=== PATIENT | female | born 1955 | race Caucasian/White ===

== ENCOUNTER → 2018-06-10 | Outpatient (CLI) | payer BC, MEDICARE ==
[~2018-06-10] MED LIST: AMLO10TA6 PO; GLYB2.5T2 PO; LOSA1TAB19 PO; METF1000 PO; METO50TA82 PO
[2018-06-10 14:56] LABS: ALANINE AMINOTRANSFERASE 29 U/L (12-78); ANION GAP 9 mmol/L (5-15); CALCIUM 9.6 mg/dL (8.5-10.1); CHLORIDE 105 mmol/L (98-107); CREATININE 0.99 mg/dL (0.55-1.02)
[2018-06-10 14:58] LABS: ALKALINE PHOSPHATASE 80 U/L (45-117); BILIRUBIN,TOTAL 0.4 mg/dL (0.2-1.0); TOTAL PROTEIN 7.2 g/dL (6.4-8.2)
== END | disposition home or self-care (01) ==
LOC: STAR 13:54
PROVIDERS: ATTEND Orthopaedic Surgery
DX: Z01.818 Encounter for other preprocedural examination (principal); M25.512 Pain in left shoulder; M75.42 Impingement syndrome of left shoulder; M75.122 Complete rotator cuff tear or rupture of left shoulder, not specified as traumatic
CPT/HCPCS: 36415; 80053; 93005

== ENCOUNTER 2018-06-15 09:12 | Day surgery (SDC) | payer BC, MEDICARE ==
[~2018-06-15] VITALS: Ht 167.6 cm; Wt 96.6 kg
[2018-06-15] MEDS ORDERED: LACTATED RINGERS 1,000 ML IV SCH (09:33)
[2018-06-15 09:49] VITALS: BP 149/85
[2018-06-15] MEDS ORDERED: GABAPENTIN 300 MG CAPSULE PO ONE (10:00)
[2018-06-15] MEDS ORDERED: ONDANSETRON ODT 8 MG PO ONE (10:00)
[2018-06-15] MEDS ORDERED: ACETAMINOPHEN 500 MG TABLET PO ONE (10:00)
[2018-06-15] MEDS ORDERED: SCOPOLAMINE PATCH, 1.5MG PATCH.TD72 TD ONE (10:00)
[2018-06-15] MEDS ORDERED: FENTANYL PF 100 MCG/2ML ONE (10:06)
[2018-06-15] MEDS ORDERED: MIDAZOLAM 1 MG/ML, 2ML ONE (10:06)
[2018-06-15] MEDS ORDERED: DEXAMETHASONE 4 MG/ML, 1ML ONE (10:07)
[2018-06-15] MEDS ORDERED: LIDOCAINE-MPF 2% ,5ML ONE (10:07)
[2018-06-15] MEDS ORDERED: CEFAZOLIN 1,000 MG ONE (10:07)
[2018-06-15] MEDS ORDERED: BUPIVACAINE/PF 0.5% ONE ×2 (10:07→11:24)
[2018-06-15] MEDS ORDERED: PROPOFOL 10 MG/ML, 20ML ONE (10:07)
[2018-06-15] MEDS ORDERED: FENTANYL PF 100 MCG/2ML IV PRN (10:30)
[2018-06-15] MEDS ORDERED: MEPERIDINE/PF 25MG/0.5ML IVPush PRN (10:30)
[2018-06-15] MEDS ORDERED: MIDAZOLAM 1 MG/ML, 2ML IV PRN (10:30)
[2018-06-15] MEDS ORDERED: OXYcodone 5 MG/5 ML ORAL.SOL UDC PO PRN (10:30)
[2018-06-15] MEDS ORDERED: PROMETHAZINE 25 MG SUPP PR PRN (10:30)
[2018-06-15] MEDS ORDERED: hydrALAzine 20 MG/ML, 1ML IV PRN (10:30)
[2018-06-15] MEDS ORDERED: LABETALOL 5MG/ML, 20ML IV PRN (10:30)
[2018-06-15] MEDS ORDERED: ONDANSETRON 2MG/ML, 2ML IV PRN (10:30)
[2018-06-15] MEDS ORDERED: ALBUTEROL/IPRATROPIUM 2.5MG/0.5MG, 3 ML NPPB PRN (10:30)
[2018-06-15] MEDS ORDERED: HYDROmorphone 1 MG/ML, 1ML IV PRN (10:30)
[2018-06-15] MEDS ORDERED: EPINEPHRINE 1 MG/ML, 1ML ONE ×3 (11:24→12:37)
[2018-06-15] MEDS ORDERED: LIDOCAINE 1%-EPI 1:100K, 30ML ONE (11:24)
[2018-06-15] MEDS ORDERED: SUCCINYLCHOLINE 20 MG/ML, 10ML ONE (11:28)
[2018-06-15] MEDS ORDERED: ROCURONIUM 10 MG/ML,10ML ONE (11:28)
[2018-06-15] MEDS ORDERED: OXYcodone 5 MG/5 ML ORAL.SOL UDC ONE (13:15)
== END 2018-06-15 16:50 | disposition home or self-care (01) ==
LOC: OUT 09:12
PROVIDERS: ATTEND Orthopaedic Surgery
DX: S43.432A Superior glenoid labrum lesion of left shoulder, initial encounter (principal); M75.112 Incomplete rotator cuff tear or rupture of left shoulder, not specified as traumatic; M94.212 Chondromalacia, left shoulder; M66.322 Spontaneous rupture of flexor tendons, left upper arm; M19.012 Primary osteoarthritis, left shoulder; M25.812 Other specified joint disorders, left shoulder; E11.9 Type 2 diabetes mellitus without complications; I10 Essential (primary) hypertension; E66.9 Obesity, unspecified; X58.XXXA Exposure to other specified factors, initial encounter; Y93.89 Activity, other specified; Y92.89 Other specified places as the place of occurrence of the external cause; Y99.8 Other external cause status; Z72.89 Other problems related to lifestyle
CPT/HCPCS: 29823; 29824; 29826; 29999; 64415; 82962; J0171; J0330; J0690; J1100; J2250; J2704; J3010; J3490; J7120; Q0162